=== PATIENT | female | born 1980 | race Caucasian/White ===

== ENCOUNTER 2021-11-04 23:14 | Emergency (ER) | payer SELFPAY ==
[~2021-11-04] VITALS: Ht 160 cm; Wt 59.1 kg
[2021-11-04 23:43] VITALS: BP 127/92
[2021-11-04 23:45] VITALS: BP 130/95
[2021-11-05] VITALS: BP 128/87
[2021-11-05] MEDS ORDERED: OMEPRAZOLE20 MG PO (00:01)
[2021-11-05] MEDS ORDERED: EFFEXOR XR75 MG/CAP PO (00:02)
[2021-11-05 00:15] VITALS: BP 122/82
[2021-11-05 00:30] VITALS: BP 123/85
[2021-11-05 00:45] VITALS: BP 133/81
[2021-11-05] MEDS ORDERED: VOLTAREN75 MG PO (00:58)
[2021-11-05] MEDS ORDERED: KEFLEX500 MG PO (00:58)
[2021-11-05 01:00] VITALS: BP 125/93
[2021-11-05 01:02] VITALS: BP 125/93
== END 2021-11-05 01:15 | disposition home or self-care (01) | DRG 603 ==
LOC: ED 23:14
DX: L03.115 Cellulitis of right lower limb (principal); F17.200 Nicotine dependence, unspecified, uncomplicated